=== PATIENT | female | born 1950 | race Caucasian/White ===

== ENCOUNTER 2024-04-19 16:10 | Emergency (ER) | payer MEDICARE, OTHER, SELFPAY ==
[2024-04-19 16:11] VITALS: BP 135/78; PULSE 70; RESP 18; TEMP 36.6; O2SAT 99; BMI 27.5
--- NOTE | 2024-04-19 17:10 | EDS_ITS ---
HPI History of Present Illness Chief Complaint: Headache Narrative Narrative: 73-year-old female past medical history of GERD and rheumatoid arthritis presents with left-sided head pain and left neck numbness that she has had for the last week to 10 days. She states it started around Friday or of last week. 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 She developed pain on the left side of her head stating that her scalp and bones hurt on the left side of her head. It improved over time but the other day, she had excruciating pain in the left side of her head mainly in the posterior aspect radiating towards the front. She denies history of headache or migraine, no fevers or chills, no nausea or vomiting, no exacerbating or alleviating factors. She had taken a few ibuprofen previously which seemed to resolve her symptoms. She states that after she gets up in the morning, when she stands up, her pain is relieved, however she feels numbness across the back of her neck. No other symptoms. PFSH PFS Home Medications ?Medication ?Instructions ?Recorded ?Last Taken ?Type omeprazole 20 mg capsule,delayed 20 mg PO DAILY Unknown History release hydrocodone-acetaminophen 5-325mg 1 - 2 tab PO Q4H PRN PRN Pain ##12 08/10/16 Unknown Rx 5mg-325mg hydrocodone-acetaminophen 5-325mg 1 tab PO Q6H PRN PRN Pain 3 days 04/19/24 Unknown Rx 5mg-325mg #12 TABLETS Allergy/AdvReac Type Severity Reaction Status Date / Time No Known Allergies Allergy Verified 04/19/24 16:11 Social History Smoking Status: Current every day smoker tobacco type: cigarettes ROS ROS ED ROS Narrative Review of systems positive for left-sided head pain and scalp pain along with numbness in occipital portion of left head and neck. Denies loss of bowel or bladder, no fevers or chills, no radiation to arms. No loss of vision, exacerbating by laying flat and improved pain with standing up. No paresthesias. EXAM Physical Exam Narrative Exam Narrative: Afebrile. Vital signs noted. Nontoxic-appearing. Cardiovascular examination reveals a regular rate and rhythm. Lungs are clear to auscultation bilaterally. Abdomen is soft and nontender with normal active bowel sounds. No rebound or guarding. Neurological examination is nonfocal, nonlateralizing. Neck is soft and supple without vertebral point tenderness or bony step-off. Const Vital Signs: 04/19/24 16:11 04/19/24 18:10 Temperature 97.8 F Temperature Source Oral Pulse Rate 70 71 Respiratory Rate 18 17 Blood Pressure 135/78 H Blood Pressure Mean 97 Pulse Ox 99 98 Oxygen Delivery Method Room Air Room Air MDM MDM MDM Narrative Medical decision making narrative: Differential diagnosis includes but not limited to cervical radiculopathy versus occipital neuralgia versus migraine type headache. She is not showing any other signs of migraine and does not have a history. I have low suspicion for intracranial hemorrhage or mass, but I do feel imaging is indicated. Her sym ptoms have been ongoing for at least a week and have improved. She is not hypertensive here currently. I will obtain CT of the brain and of the C-spine. I do not feel that she needs a CTA as there is no evidence of large vessel occlusion on her physical examination, and her symptoms have been ongoing for more than a week. I reviewed the radiology report of the CT of the brain and there is no acute intracranial finding, she does have findings of chronic microvascular ischemic changes and age-related changes as well. CT of the cervical spine radiology report was reviewed and there is no acute cervical fracture, she has degenerative disease. At this point in time, I discussed with her as we had discussed previously the possibility that this is more of a cervical radiculopathy from DJD versus occipital neuralgia. I do not feel that she requires CTA imaging, and I feel she can be discharged to follow-up. She was written a prescription for [place] tablets to take for breakthrough pain. Return instructions to the emergency department were reviewed. Disposition is discharged home in stable condition. History & Record Review Discussion w/independent historian: Patient Radiography Diagnostic Testing: Clinical Impression(s) from Imaging Studies Brain CT 04/19/24 17:25 IMPRESSION: No acute intracranial finding. Findings of chronic microvascular ischemic changes and age-related changes. Reading Location: [facility] Cervical Spine CT 04/19/24 17:25 IMPRESSION: 1. No acute cervical fracture. Degenerative disease. 2. Severe emphysema. One or more dose reduction techniques were used (e.g., Automated exposure control, adjustment of the mA and/or kV according to patient size, use of iterative reconstruction technique). Reading Location: [facility] Discharge Plan Triage Chief Complaint: Headache ED Provider: Federico Peck Dx/Rx/DC Orders Clinical Impression: Occipital neuralgia of left side, Cervical radiculopathy due to degenerative joint disease of spine Instructions: ED Neck Pain, ED Radiculopathy, Cervical, ED Occipital Neuralgia Prescriptions: New hydrocodone-acetaminophen 5-325 mg tablet 1 tab PO Q6H PRN PRN (Reason: Pain) 3 Days Qty: 12 0RF No Action omeprazole 20 MG capsule 20 mg PO DAILY hydrocodone-acetaminophen 1 TABLET tablet 1 - 2 tab PO Q4H PRN PRN (Reason: Pain) Qty: 12 0RF Primary Care Provider: Ketan Munoz Referrals: Ketan Munoz MD [Primary Care Provider] - 3-5 Days if not improving Activity Restrictions/Additional Instructions: Take [place] as needed for breakthrough pain. Follow-up with your primary care provider. You may need referral to physical therapy or pain management. Print Language: [place] Disposition Disposition: Home, Self Care Discharge Date/Time: 04/19/24 18:57
--- NOTE | 2024-04-19 17:25 | CT_ITS ---
PROCEDURE: SPINE CERVICAL WITHOUT CONTRAS REASON FOR EXAM: 73-year-old female, headache for several days. TECHNIQUE: Cervical spine CT without contrast. COMPARISON: None. FINDINGS: Alignment: There is straightening of the normal cervical lordosis, likely secondary to patient positioning. Mild multilevel degenerative disc disease. No traumatic listhesis. Vertebrae: No acute fracture. Mild chronic multilevel vertebral body height loss. Soft Tissues: No large prevertebral hematoma Severe biapical emphysema. Calcific plaque of the bilateral common carotid arteries. CT/Spine Cervical without Contras IMPRESSION: 1. No acute cervical fracture. Degenerative disease. 2. Severe emphysema. One or more dose reduction techniques were used (e.g., Automated exposure contr ol, adjustment of the mA and/or kV according to patient size, use of iterative reconstruction technique). Reading Location: [id number]
--- NOTE | 2024-04-19 17:25 | CT_ITS ---
EXAM: BRAIN/HEAD WITHOUT CONTRAST CLINICAL HISTORY: 73 y/o F with OCCIPITAL PAIN for several days. COMPARISON: None. TECHNIQUE: Routine CT imaging of the head without IV contrast. Additional multiplanar reformats were obtained. Dose reduction techniques were used including intermediate exposure control (AEC),iterative reconstruction technique, and/or mA and/or KV dose adjustments based on patient's size. FINDINGS: Moderate diffuse cerebral and cerebellar volume loss with concordant prominence of the ventricles and subarachnoid spaces. Moderate patchy supratentorial white matter hypodensities. The chicas-white matter interfaces are otherwise maintained. The basal cisterns are patent. No acute intracranial hemorrhage or herniation. Trace mucosal thickening of the left sphenoid sinus. The visualized paranasal sinuses and mastoids are otherwise unremarkable. Normal bilateral orbits. No acute calvarial fracture or scalp hematoma. CT/Brain/Head without Contrast IMPRESSION: No acute intracranial finding. Findings of chronic microvascular ischemic madrigal ges and age-related changes. Reading Location: [id number]
[2024-04-19 18:10] VITALS: PULSE 71; RESP 17; O2SAT 98
== END 2024-04-19 18:57 | disposition home or self-care (01) ==
PROVIDERS: Emergency Provider Emergency Medicine; PCP Family Medicine; Referring Provider Emergency Medicine; Visit Provider Emergency Medicine
DX: M54.81 Occipital neuralgia (principal); M06.9 Rheumatoid arthritis, unspecified; M54.12 Radiculopathy, cervical region; M50.30 Other cervical disc degeneration, unspecified cervical region; K21.9 Gastro-esophageal reflux disease without esophagitis; F17.210 Nicotine dependence, cigarettes, uncomplicated
CPT/HCPCS: 70450; 72125; 99282